=== PATIENT | female | born 1970 | race Hispanic/Latino ===

== ENCOUNTER 2022-08-15 07:15 | Day surgery (SDC) | payer BC ==
[~2022-08-15] VITALS: Ht 165.1 cm; Wt 85.9 kg
[~2022-08-15 07:15] MED LIST: CALCITRATE200 MG PO; FEOSOL325 MG; VITAMIN D31000 UNI1 PO; VITAMIN E1000 UNI1 PO
--- NOTE | 2022-08-15 08:35 | NUR ---
08/15/22 0835 Luisa Brown 0817 PATIENT ARRIVES TO PACU RESTING WITH EYES CLOSED. OPENS EYES WITH VERBAL STIMULI. BACK TO SLEEP WHEN NOT STIMULATED. RESP EVEN AND UNLABORED, NC ON AT 3 LITERS, TURNED OFF ON ARRIVAL TO PACU.
--- NOTE | 2022-08-16 07:05 | OR ---
[facility] [address] [place], [place] [address] Signed DATE OF OPERATION: 08/15/2022 SURGEON: Ember Perez MD PREOPERATIVE DIAGNOSES: 1. Personal history of colonic polyps in 2017 at age 46. 2. Internal hemorrhoids. POSTOPERATIVE DIAGNOSIS: Unremarkable colonoscopy. PROCEDURE: Colonoscopy without biopsy. ESTIMATED BLOOD LOSS: None. INDICATIONS: Ana is a 51-year-old female, we helped with upper and lower endoscopy back in 2017 at the age of 46. She had iron deficiency anemia at that time. She had a tubular adenomatous polyp removed along with internal hemorrhoids. She had done well with Versed and fentanyl. She returns now five years later for repeat colonoscopy. Her always comes with her. She actually speaks [place] fairly well, but we did have an field marketing associate on the phone. I gave her our brochures and our instructions all written in [place] as well as Japanese. We had reviewed the nature of the colonoscopy. She recalls that well. There is risk including, but not limited to gas bloating, crampy abdominal pain, bleeding, perforation requiring surgery, and missed diagnosis. We also reviewed the need for IV conscious sedation. She had expressed understanding and wished to proceed. PROCEDURE NOTE: Ana was taken into our endoscopy suite and placed in the left lateral decubitus position. She was given 4 mg of Versed and 100 mcg of fentanyl to cover the case. A digital rectal exam was performed and this was unremarkable. She has very good external perianal hygiene. She had good sphincter tone. There were no masses. The adult colonoscope was introduced and advanced all around into the cecum under direct visualization of the camera without difficulty. Her prep was good except for some particulate stool matter in the base of the cecum and around the base of the ileocecal valve. The scope was then slowly withdrawn. We took pictures throughout for photodocumentation. We tried to irrigate some of the solid stool, but it was sticky and Electronically Signed By: EMBER PEREZ MD 08/16/22 0705 PATIENT NAME: ALYSSA CHEEK OPERATIVE REPORT DATE OF : 70 REPORT #: [id number] PHYSICIAN: EMBER PEREZ MD PCP: BRANDEN MIR MD REPORT IS CONFIDENTIAL AND NOT TO BE RELEASED WITHOUT AUTHORIZATION [facility] [address] [place], [place] [address] Signed would not move. Otherwise, the rest of the entire colon and the rectum was unremarkable. Upon retroflexion of the scope, she has very minimal internal hemorrhoid tissue. After this, the gas was suctioned out and the colonoscope removed. Ana tolerated the procedure quite well. RECOMMENDATIONS: Ana can return in 5 years for repeat colonoscopy given her personal history of colonic polyps. Ember Perez MD ALB/SANDROL /[id number] cc: MD Alejandro Mcnally DO Dr. Jadie Dolan Copies: EMBER PEREZ MD, ARIAN DO ~ Electronically Signed By: EMBER PEREZ MD 08/16/22 0705 PATIENT NAME: ALYSSA CHEEK OPERATIVE REPORT DATE OF : 70 REPORT #: [id number] PHYSICIAN: EMBER PEREZ MD PCP: BRANDEN MIR MD REPORT IS CONFIDENTIAL AND NOT TO BE RELEASED WITHOUT AUTHORIZATION
== END 2022-08-15 09:15 | disposition home or self-care (01) ==
LOC: DS 07:15
PROVIDERS: ATTEND Colon & Rectal Surgery
PROC: 0DJD8ZZ Inspection of Lower Intestinal Tract, Via Natural or Artificial Opening Endoscopic (ICD-10-PCS; principal; 2022-08-15 08:15)
DX: Z12.11 Encounter for screening for malignant neoplasm of colon (principal); Z86.010 Personal history of colon polyps; E55.9 Vitamin D deficiency, unspecified; D50.9 Iron deficiency anemia, unspecified; K64.8 Other hemorrhoids
CPT/HCPCS: G0500; J2250; J3010; J7121

== ENCOUNTER 2025-02-16 07:52 | Day surgery (SDC) | payer OTHER ==
[2025-02-14 12:38] VITALS: BP 131/76
[~2025-02-16] VITALS: Ht 165.1 cm; Wt 85.0 kg
[~2025-02-16 07:52] MED LIST changes: +IBLOOD GLUCOSE TEST STRIP 1 EA TEST VI PRN; +LACTATED RINGER'S 1,000 ML IV SCH; +LIDOCAINE HCL 1% 5 ML SDV INJ ONE
[2025-02-16 08:13] VITALS: BP 117/73
[2025-02-16] MEDS ORDERED: ondansetron HCL 4 MG/2 ML VIAL ONE (10:45)
[2025-02-16] MEDS ORDERED: KETOROLAC TROMETHAMINE 30 MG/ML VIAL ONE (10:45)
[2025-02-16] MEDS ORDERED: ACETAMINOPHEN 1,000 MG/100 ML VIAL ONE (10:45)
[2025-02-16] MEDS ORDERED: propofoL 200 MG/20 ML VIAL ONE ×2 (10:45→11:28)
[2025-02-16] MEDS ORDERED: LIDOCAINE HCL 2% 20 MG/ML VIAL INJ ONE (10:45)
[2025-02-16] MEDS ORDERED: fentaNYL citrate 100 MCG/2 ML VIAL ONE (10:46)
[2025-02-16] MEDS ORDERED: IBLOOD GLUCOSE TEST STRIP 1 EA TEST VI PRN (11:00)
[2025-02-16] MEDS ORDERED: fentaNYL citrate 50 MCG/ML SDV IV PRN (11:00)
[2025-02-16] MEDS ORDERED: PROCHLORPERAZINE EDISYLATE 10 MG/2 ML VIAL IV PRN (11:00)
[2025-02-16] MEDS ORDERED: NALOXONE HCL 0.4 MG SYR IV PRN ×2 (11:00→11:45)
[2025-02-16] MEDS ORDERED: ondansetron HCL 4 MG/2 ML VIAL IV PRN (11:00)
[2025-02-16] MEDS ORDERED: HYDROmorphone HCL 1 MG/ML SYR IV PRN (11:00)
[2025-02-16] MEDS ORDERED: droPERidol 5 MG/2 ML VIAL IV PRN (11:00)
--- NOTE | 2025-02-16 11:42 | NUR ---
02/16/25 1142 Beba Ocampo PATIENT AWAKE. SHE FOLLOWS INSTRUCTIONS TO OPEN HER MOUTH AND REPORTS FEELING COLD. MAGDI [place] ON WARM. ORAL AIRWAY REMOVED.
[2025-02-16] MEDS ORDERED: HYDROCODONE/ACETA 5/325 TAB PO PRN (11:45)
[2025-02-16] MEDS ORDERED: FAMOTIDINE 20 MG TAB PO PRN (11:45)
[2025-02-16] MEDS ORDERED: SIMETHICONE 80 MG CHEW PO PRN (11:45)
[2025-02-16] MEDS ORDERED: MAGNESIUM HYDROXIDE/AL HYDROX 30 ML CUP PO PRN (11:45)
[2025-02-16] MEDS ORDERED: bisacodyL 10 MG SUPP PR PRN (11:45)
[2025-02-16] MEDS ORDERED: FAMOTIDINE 20 MG/ 2 ML VIAL IV PRN (11:45)
[2025-02-16] MEDS ORDERED: HYDROCODON-ACE1 EA10 PO (11:59)
[2025-02-16 12:15] VITALS: BP 109/75
[2025-02-16] MEDS ORDERED: SIMETHICONE 80 MG CHEW PO SCH (13:00)
[2025-02-16] MEDS ORDERED: IBUPROFEN 800 MG TAB PO SCH (14:00)
[2025-02-16] MEDS ORDERED: SENNOSIDES/DOCUSATE 1 EA TAB PO SCH (21:00)
--- NOTE | 2025-02-19 19:41 | PATH ---
[facility] [address] [place], [place] [address] Signed SPECIMEN(S): A CERVICAL MASS SPECIMEN(S): B UTERINE POLYP SPECIMEN SOURCE: A. CERVICAL MASS B. UTERINE POLYP CLINICAL HISTORY: Cervical mass FINAL PATHOLOGIC DIAGNOSIS: A. Cervical mass, biopsy: - Multiple portions of benign smooth muscle with whorling arrangement, partially covered by atrophic endometrium. - Histologic features are consistent with submucosal leiomyoma. - Scant portions of benign endocervical glandular epithelium are present. - Negative for atypia and malignancy. B. Uterine polyp, biopsy - Portions of endometrial polyp. - Negative for hyperplasia, atypia, and malignancy. SDL MICROSCOPIC EXAMINATION: Histologic sections of all submitted blocks are examined by light microscopy. These findings, together with the gross examination, support the pathologic diagnosis. GROSS DESCRIPTION: A. The specimen, labeled and designated "Mac Cline, cervical mass per requisition," is received in formalin and consists of a 7.4 x 3 x 0.6 cm aggregate of farah-pink tissue fragments. There is no significant amount of brown-red congealed blood. The specimen is entirely submitted in cassette A1-A3. B. The specimen, labeled and designated "Mac Cline, uterine polyp per requisition," is received in formalin and consists of a 2.7 x 1.4 x 0.3 cm aggregate of farah-pink tissue fragments. The specimen is entirely submitted in cassette B1. AA (under the direct supervision of a pathologist) The Gross Description was prepared using a voice recognition system. The report was reviewed for accuracy; however, sound-alike word errors, addition and/or deletions may occur. If there are any PATIENT NAME: ALYSSA CLINE PATHOLOGY DATE OF : 70 REPORT #: [id number] PHYSICIAN: DIANE TOMAS PCP: BRANDEN MIR MD REPORT IS CONFIDENTIAL AND NOT TO BE RELEASED WITHOUT AUTHORIZATION [facility] [address] [place] [id number] Signed questions about this report, please contact Client Services. ADDITIONAL NOTES: Immunohistochemical and/or in situ hybridization studies if performed in this case included appropriate positive controls that reacted as expected. This test was developed and its performance characteristics determined by [facility]. It has not been cleared or approved by the U.S. Food and Drug Administration. The FDA has determined that such clearance or approval is not necessary. This test is used for clinical purposes. It should not be regarded as investigational or for research. [facility] is certified under the Clinical Laboratory Improvement Amendments of 1988 (CLIA) as qualified to perform high complexity clinical laboratory testing. PERFORMING LABORATORY: Technical component was performed by [facility], [address] [place] [id number] (CLIA# [id number]). Professional interpretation was performed by [facility], [address] [place] [id number] (CLIA#: [id number]). Diagnostician: Lisa Zhang MD Pathologist Electronically Signed 02/19/2025 Copies: ~ PATIENT NAME: ALYSSA CLINE PATHOLOGY DATE OF : 70 REPORT #: [id number] PHYSICIAN: DIANE PATHOLOGY PCP: BRANDEN MIR MD REPORT IS CONFIDENTIAL AND NOT TO BE RELEASED WITHOUT AUTHORIZATION
== END 2025-02-16 12:23 | disposition home or self-care (01) ==
LOC: DS 07:52
PROVIDERS: ATTEND Obstetrics & Gynecology
PROC: 0UB48ZZ Excision of Uterine Supporting Structure, Via Natural or Artificial Opening Endoscopic (ICD-10-PCS; principal; 2025-02-16 10:00)
DX: N84.0 Polyp of corpus uteri (principal); N88.8 Other specified noninflammatory disorders of cervix uteri; N95.0 Postmenopausal bleeding; D64.9 Anemia, unspecified; Z79.899 Other long term (current) drug therapy
CPT/HCPCS: 00952; 88305; J0131; J1885; J2405; J2704; J3010